=== PATIENT | female | born 2000 | race Caucasian/White ===

== ENCOUNTER 2024-07-26 20:13 | Emergency (ER) | payer OTHER ==
[~2024-07-26] VITALS: Ht 170.2 cm; Wt 113.6 kg
[2024-07-26] MEDS ORDERED: Sulfamethoxazole/Trimethoprim 800-160 MG TAB PO ONE (22:15)
[2024-07-26] MEDS ORDERED: BACTRIM DS TAB1 EACH PO (22:16)
[2024-07-26 22:34] VITALS: BP 144/95
== END 2024-07-26 22:37 | disposition home or self-care (01) ==
LOC: ED 20:13
DX: N75.0 Cyst of Bartholin's gland (principal)